=== PATIENT | female | born 1945 | race Caucasian/White ===

== ENCOUNTER 2017-11-17 20:46 | Emergency (ER) | payer OTHER ==
[2017-11-17 21:02] VITALS: BP 143/97
[2017-11-17] MEDS ORDERED: PHENAZOPYRIDINE HCL 200 MG TAB PO ONE (21:37)
[2017-11-17] MEDS ORDERED: CEPHALEXIN 500 MG CAP PO ONE (21:37)
--- NOTE | 2017-11-17 21:38 | EDPHY ---
H & P Stated Complaint: Dysuria, frequency, retention, hematuria-since noon Time Seen by Provider: 11/17/17 20:55 HPI/ROS: CHIEF COMPLAINT: Pain with urination HISTORY OF PRESENT ILLNESS: This is a 72-year-old female with a history of COPD who presents with dysuria, hematuria, urinary urgency, and urinary frequency. She has not had fever, flank pain, or vomiting. She denies abdominal pain. No change in bowel movements. REVIEW OF SYSTEMS: A ten system review of systems was performed and is negative with the exception of the items mentioned in the HPI. Past medical history: 1. COPD, oxygen dependent 2. Aortic aneurysm that is followed regularly 3. Left neck mass for which she is undergoing outpatient workup 4. Diverticulitis Past surgical history: Diverticulitis status post colon resection Left neck mass biopsy Social history: She is . Former smoker, no current tobacco use. General Appearance: Alert. Vital signs reviewed. Eyes: Pupils equal and round, no conjunctival injection, no discharge. Anicteric. Neck: Trachea midline. Left neck mass that is firm and nontender. It measures approximately 5 x 6 cm. Respiratory: Lungs sounds are distant to auscultation. Cardiovascular: Regular rate and rhythm; no murmur, rub, or gallop. Gastrointestinal: Abdomen is obese, soft and nontender. Skin: Warm and dry, no rashes on exposed skin, normal color. Back: No CVAT. Neurological: Alert and oriented. Moving all four extremities easily and equally. Psychiatric: Normal affect. - Personal History Current Tetanus/Diphtheria Vaccine: Unsure Current Tetanus Diphtheria and Acellular Pertussis (TDAP): Unsure - Medical/Surgical History Hx Asthma: No Hx Chronic Respiratory Disease: Yes Hx Diabetes: No Hx Cardiac Disease: No Hx Renal Disease: No Hx Cirrhosis: No Hx Alcoholism: No Hx HIV/AIDS: No Hx Splenectomy or Spleen Trauma: No Other PMH: Aortic anuersym-followed by Justin, COPD, HTN, High cholestrol, diverticulitis-colon resxn. L neck lump being researched at present. - Social History Smoking Status: Former smoker Constitutional: Initial Vital Signs Temperature (C) 36.7 C 11/17/17 20:54 Heart Rate 82 11/17/17 20:54 Respiratory Rate 20 11/17/17 20:54 Blood Pressure 143/97 H 11/17/17 20:54 O2 Sat (%) 93 11/17/17 20:54 O2 Delivery Mode Nasal Cannula O2 (L/minute) 2 Allergies/Adverse Reactions: metronidazole [From Flagyl] Allergy (Mild, Verified 11/17/17 20:52) Other-Enter Comments Home Medications: Medication Instructions Recorded Advair 250/50 (*) 11/17/17 Atorvastatin Calcium 11/17/17 Cephalexin [Keflex] 500 mg PO BID #13 cap 11/17/17 Lisinopril 11/17/17 Phenazopyridine HCl [Pyridium] 200 mg PO TID PRN #4 tab 11/17/17 Spiriva Inhaler (RX) 11/17/17 Ventolin Hfa 11/17/17 Vitamin D2 11/17/17 Medical Decision Making ED Course/Re-evaluation: 72-year-old female with classic signs of urinary tract infection. Urine dip is positive for blood and trace leukocytes. I suspect that this is an early urinary tract infection and am choosing to treat her with Keflex 500 mg twice daily for 7 days. Her 1st dose was given tonight in the emergency department. She was also given a dose of Pyridium. Urine culture has been sent. She is afebrile and there are no signs of sepsis. I do not suspect pyelonephritis. She is not in pain and I do not think that she has ureterolithiasis. She has a history of hypertension and I note that her blood pressure is high in the emergency department. She will have this followed by her PCP. Differential Diagnosis: Flank pain including but not limited to musculoskeletal causes, kidney stone, pyelonephritis, shingles, and intra-abdominal causes such as diverticulitis and appendicitis. - Data Points Point of Care Test Results: Urine Dip Collection Date 11/17/17 Collection Time 20:05 Specific [place] (1.002-1.030) 1.015 PH (5.0-7.5) 7.0 Leukocytes (Negative) Trace Nitrites (Negative) Negative Protein (Negative) 2+ Glucose (Negative) Negative Ketones (Negative) Negative Urobilnogen (0.2-1.0 EU) 0.2 Bilirubin (Negative) Negative Blood (Negative) 3+ Departure - Departure Disposition: Home, Routine, Self-Care Clinical Impression: Urinary tract infection Qualifiers: Urinary tract infection type: acute cystitis Hematuria presence: with hematuria Qualified Code(s): N30.01 - Acute cystitis with hematuria Condition: Good Instructions: Urinary Tract Infection in Women (ED) Additional Instructions: Take the antibiotic, Keflex, twice daily for 7 days. You have received her 1st dose here tonight. Use the Pyridium as needed for pain when urinating. It will turn your urine orange; do not be alarmed by this. A urine culture has been sent to see if the bacteria can be identified. We will contact you if you need a change in antibiotics. Follow up with your primary care provider. If you develop fever, vomiting, flank pain, abdominal pain, any new or concerning symptoms--please be re-evaluated immediately. Referrals: Iesha Prince DO [Primary Care Provider] - As per Instructions Prescriptions: Cephalexin [Keflex] 500 mg PO BID #13 cap Phenazopyridine HCl [Pyridium] 200 mg PO TID PRN #4 tab PRN Reason: urinary tract infection
== END 2017-11-17 21:50 | disposition home or self-care (01) ==
LOC: CED 20:46
DX: N30.01 Acute cystitis with hematuria (principal); I10 Essential (primary) hypertension; Z87.891 Personal history of nicotine dependence